=== PATIENT | male | born 1990 | race Two or more races ===

== ENCOUNTER 2022-06-11 13:55 | Emergency (ER) | payer SELFPAY ==
[2022-06-11 14:10] VITALS: BP 148/91; PULSE 114; RESP 20; TEMP 36.8; O2SAT 98; BMI 24.0
[2022-06-11 14:23] LABS: POC Glucose,Bedside 314 (70-110)
--- NOTE | 2022-06-11 14:45 | PC.NURSE ---
called RT for vbg collection
[2022-06-11 14:49] LABS: Microscopic, Urine URINE MICROSCOPIC (MICROSCOPIC)
--- NOTE | 2022-06-11 14:50 | HMH.EDGENADL ---
Discharge Plan Disposition Patient Disposition: Home, Self-Care Condition: Good Prescriptions Prescriptions: New metformin 500 mg tablet 500 mg PO BID Qty: 60 0RF glipizide 5 mg tablet 5 mg PO DAILY Qty: 30 0RF Referrals Follow up/Referrals: Provider,Referral, [Primary Care Provider] - See instructions Activity Restrictions/Add. Instructions Additional Instructions/Restrictions: Take medications as prescribed, glipizide once in the morning and Glucophage twice a day. Follow-up at [facility] on 06/15/2022 as scheduled. Clinical Impressions Clinical Impression: Diabetes mellitus, Acute hyperglycemia Instructions Patient Instructions: DI for Diabetes Type 2, DI for Hyperglycemia -- Adult, What to Eat if You Have Diabetes Discharge ED Provider: Vitor Steiner General Adult HPI General Chief complaint: Hyper/Hypoglycemia Stated complaint: blood sugar 273 kidney pain Time Seen by Provider: 06/11/22 14:39 Mode of Arrival: Ambulatory Source of Information: Patient Limitations: No Limitations Description of Symptoms (Recalled from ER Triage Doc. by RN): triage completed using frisian ipad interpretation: pt to ed c/o weakness, dry mouth and elevated blood glucose. pt states he has had one prior episode of hyperglycemia but reports he does not take medictions for diabetes. pt states he started feeling this way this morning. pt denies pain. pt denies cp or soa. History of Present Illness HPI narrative: Complains of weakness, dry mouth, polyuria and polydipsia. He was taken by a friend to an urgent treatment center in [place] today. They reportedly checked his blood sugar and told him to either go to an emergency department or [facility]. His friend called [facility], but they said they do not take new patients on weekends. They have made an appointment for follow-up. Initially the patient did not want to go to the emergency department but changed his mind and therefore was brought here. Prior history of an elevated blood sugar once without treatment. He is not on any medications. Related Data Previous Rx's Medication Instructions Recorded glipizide 5 mg tablet 5 mg PO DAILY #30 tabs 06/11/22 metformin 500 mg tablet 500 mg PO BID #60 tabs 06/11/22 Allergies Allergy/AdvReac Type Severity Reaction Status Date / Time No Known Allergies Allergy Verified 06/11/22 14:25 PFSH PFSH Social History Smoking Status: Never smoker ROS Obtained: Yes Systems reviewed as appropriate & no additional complaints except as documented Constitutional Constitutional: Denies fever(s), Denies headache(s) and Denies weakness ENT Ears, Nose, Mouth, and Throat: Denies headache(s), Denies nasal discharge and Denies sore throat Cardiovascular Cardiovascular: Denies chest pain Respiratory Respiratory: Denies shortness of breath and Denies cough Gastrointestinal Gastrointestingal: Denies abdominal pain, constipation, diarrhea or vomiting Genitourinary Male Genitourinary: Denies difficulty urinating and Denies flank pain Musculoskeletal Musculoskeletal: Denies numbness Neurologic Neurologic: Denies headache(s), Denies numbness and Denies weakness Physical Exam General General appearance: alert and in no apparent distress Head Head exam: atraumatic and normocephalic Eye Eye exam: Present normal appearance and EOMI ENT ENT exam: Present mucous membranes moist Neck Neck exam: Present normal inspection and trachea midline Chest Chest inspection: Present normal inspection and symmetric chest wall rise Respiratory Respiratory exam: Present normal lung sounds bilaterally; Absent respiratory distress Cardiovascular Cardiovascular exam: Present regular rate, normal rhythm and normal heart sounds Abdominal Exam Abdominal exam: Present soft and normal bowel sounds; Absent distention, tenderness, guarding, rebound or rigidity Extremities Exam Extremities exam
[2022-06-11 14:51] LABS: Appearance,Urine CLEAR (Clear); Bilirubin,Urine Negative (Negative); Blood, Urine TRACE-I (Negative); Color,Urine YELLOW (Yellow); Glucose,Urine (UA) 3+ (Negative); Ketones,Urine 3+ (Negative); Leukocyte Esterase,Urine Negative (Negative); Nitrate,Urine Negative (Negative); Protein,Urine 1+ (Negative)
[2022-06-11 14:51] LABS: Chloride 94 mmol/L (98-107); Sodium 140 mmol/L (136-145)
[2022-06-11 14:52] LABS: Potassium 3.8 mmoL/L (3.5-5.1)
[2022-06-11 14:53] LABS: Coronavirus 19, PCR Not Detected (NotDetected); Influenza A, PCR Not Detected (NotDetected); Influenza B, PCR Not Detected (NotDetected)
[2022-06-11 14:54] LABS: Alanine Aminotransferase 43 U/L (12-78); Alkaline Phosphatase 137 U/L (38-126); Anion Gap 24.8 mEq/L (5-15); Aspartate Amino Transferase 41 U/L (17-59); Bilirubin,Total 0.8 mg/dl (0.2-1.3); Blood Urea Nitrogen 13 mg/dl (9-20); Carbon Dioxide 25 mmol/L (22.0-30.0); Creatinine Clearance Estimated 182 mL/min (50-200); Estimated Glomerular Filt Rate 194 ml/min (>60); GFR (African American) 235 ML/MIN (>60)
[2022-06-11 14:55] LABS: Albumin Level 5.2 g/dl (3.5-5.0); Albumin/Globulin Ratio 1.4 (1.1-1.8); Calcium 10.3 mg/dl (8.4-10.2); Globulin 3.6 g/dL (1.3-3.2); Glucose 345 mg/dl (74-100); Total Protein,Serum 8.8 g/dl (6.3-8.2)
[2022-06-11 14:56] LABS: VBG HCO3 22.3 mmol/L (23-30); VBG PCO2 35.4 mmol/L (35-51); VBG PH 7.42 mmol/L (7.31-7.41); VBG Total CO2 23.4 mmol/L (23-27)
[2022-06-11 14:57] LABS: Basophils # 0.1 K/mm3 (0-0.2); Basophils % 0.4 % (0.1-2.0); Eosinophils % 0.1 % (0.1-12.0); Hematocrit 51.3 % (42.0-52.0); Hemoglobin 17.2 g/dL (14.1-18.0); Lymphocytes # 0.8 K/mm3 (0.7-4.5); Lymphocytes % 4.6 % (10-50); Mean Corpuscular HGB Conc 33.6 g/dL (31.8-35.4); Mean Corpuscular Hemoglobin 32.4 pg (27.0-31.2); Mean Corpuscular Volume 96.6 fl (80-94); Mean Platelet Volume 8.4 fl (7.4-10.4); Monocytes # 0.7 K/mm3 (0.1-1.0); Monocytes % 3.9 % (1.7-9.3); Neutrophils # 15.3 K/mm3 (1.8-7.8); Platelet Count 366 K/mm3 (142-424); Red Blood Count 5.31 M/mm3 (4.60-6.20); Red Cell Distribution Width 13.2 % (11.5-17.5); White Blood Count 16.8 K/mm3 (4.8-10.8)
[2022-06-11 14:57] LABS: VBG Base Excess -2.2 mmol/L (-2.4-2.3); VBG Oxygen Saturation 97.4 % (50-70)
[2022-06-11 14:59] LABS: MANUAL DIFFERENTIAL MANUAL DIFFERENTIAL (MANUAL DIFF)
[2022-06-11 15:00] VITALS: BP 130/69; PULSE 115; RESP 20; O2SAT 98
[2022-06-11 15:08] LABS: Acetone, Serum (Rapid) Small (None Detect)
[2022-06-11 15:12] LABS: Squamous Epithelial Cell,Urine Occasional #/hpf (0-5)
[2022-06-11 15:13] LABS: Hemoglobin A1C 11.6 % (4.0-6.0)
[2022-06-11 15:30] VITALS: BP 138/85; PULSE 112; RESP 18; O2SAT 99
[2022-06-11 15:31] LABS: Lymphocytes % 4 % (10-50); Monocytes % 1 % (2-9); Neutrophils % 93 % (42-76); Platelet Estimate Normal; Total Cells Counted 100
[2022-06-11 15:32] LABS: RBC Morphology Normal
[2022-06-11 15:56] VITALS: BP 134/82; PULSE 119; RESP 20; O2SAT 98
--- NOTE | 2022-06-11 15:58 | PC.NURSE ---
rounded on pt at this time. no needs voiced.
[2022-06-11 16:00] VITALS: BP 135/85; PULSE 113; RESP 20; O2SAT 98
[2022-06-11 16:22] LABS: POC Glucose,Bedside 224 (70-110)
[2022-06-11 17:15] VITALS: BP 130/80; PULSE 110; RESP 20; TEMP 36.8; O2SAT 99
== END 2022-06-11 17:15 | disposition home or self-care (01) ==
PROVIDERS: Emergency Provider Emergency Medicine
DX: E11.65 Type 2 diabetes mellitus with hyperglycemia (principal); Z79.84 Long term (current) use of oral hypoglycemic drugs; Z79.899 Other long term (current) drug therapy
CPT/HCPCS: 80053; 81001; 82009; 82803; 82962; 83036; 85007; 85025; 96365; 96375; 99213; C9803; G0463; U0003; U0005